=== PATIENT | male | born 1960 | race Caucasian/White ===

== ENCOUNTER → 2019-11-21 | Day surgery (SDC) | payer OTHER ==
[~2019-11-21] MED LIST: CARVEDILOL25 MG PO; FENOFIBRATE145 M1 PO; FENOFIBRATE160 MG PO; NORCO 5-325 TA1 EAC1 PO; ULTRAM 50MG TAB50 MG PO
[2019-11-21 07:40] LABS: HEMATOCRIT 45.6 % (42.0-52.0); HEMOGLOBIN 15.8 gm/dL (14.0-18.0); MCH 30.4 pg (26.0-34.0); MCHC 34.6 g/dL (28.0-37.0); MCV 87.7 fL (80.0-100.0); MPV 11.3 fl. (7.2-11.1); RBC 5.2 mil/uL (4.50-6.00); RDW-CV 13.2 % (10.5-14.5); WBC 7.7 thou/uL (4.0-11.0)
[2019-11-21 07:43] LABS: CALCIUM 8.6 mg/dL (8.5-10.1); CREATININE 0.9 mg/dL (0.6-1.3); POTASSIUM 4.1 mmol/L (3.5-5.1)
--- NOTE | 2019-11-21 08:59 | EKG ---
[place] [address] ELECTROCARDIOGRAM REPORT Name: MARIA EUGENIATANJA Rangel Room: [facility]#: [id number] Admission: 11/21/19 Attend Phys: Eric Miller Discharge: Date of : 64 Date of Service: 11/21/19 0756 Report #: [id number] THIS REPORT FOR: //name// [facility] Test Date: 2019-11-21 Test Time: 07:56:33 Pat Name: TANJA DEL CID Department: Room: Gender: Surg Tech: : 1960 Requested By: Eric Shelton Order Number: [id number] MD: Cabrera Doe Measurements Intervals [place] Rate: 57 P: 22 CT: 170 QRS: 42 QRSD: 134 T: 16 QT: 455 QTc: 443 Interpretive Statements Sinus rhythm Right bundle branch block No previous ECG available for comparison Electronically Signed On 11-21-2019 8:57:33 CDT by Cabrera Doe [email or web address] <ELECTRONICALLY SIGNED> By: Cabrera Doe MD, [facility] 11/21/19 0857 0756 0756 Cabrera Doe MD, FACC /EPI
--- NOTE | 2019-11-23 11:09 | PATH ---
[facility] [address] [place] [address] PATHOLOGY RPT PROCEDURE Name: TANJA DEL CID Room: [facility].#: [id number] Admission: 11/21/19 Date of : 64 Discharge: Report #: [id number] Path Case #: [id number] [facility] Accession Number: [id number] . 01 Material submitted: . groin - RIGHT GROIN LIPOMA. Modifiers: right . 01 Clinical history: . Lipoma, groin . 02 Diagnosis: Right groin lipoma: - Lipoma. (DONAVAN/db; 11/22/2019) LBQ 11/22/2019 1825 Local . 02 Electronically signed: . Fortunato Petty MD, Pathologist NPI- [id number] . 01 Gross description: . The specimen is received in formalin, labeled "[place] Saad, right groin lipoma". Received is a segment of yellow-cedeño lobulated tissue measuring 6.3 x 4.1 x 2.2 cm in greatest dimensions. Sectioning reveals bright yellow cut surfaces with no grossly distinct nodules or lesions. The specimen is submitted representatively in cassette A1. (CAA; 11/21/2019) QAC/QAC 11/21/2019 1707 Local . 02 Pathologist provided ICD-10: D17.79 . 02 CPT . 682229 Specimen Comment: A courtesy copy of this report has been sent to [phone] Specimen Comment: [phone] Specimen Comment: Report sent to / DR PALMER Performed at: [address], [place], [place] [id number] MD Sam Dobbins MD Phone: [phone] Performed at: 02 [facility] [address], [place], [place] [id number] MD Fortunato Petty MD Phone: [phone]
--- NOTE | 2019-12-02 13:17 | OP ---
[facility] [address] [place] [address] OPERATIVE REPORT Name: TANJA DEL CID Room: [facility]#: [id number] Admission: 11/21/19 Attend Phys: Eric Shelton Discharge: Date of : 64 Report #: [id number] THIS REPORT FOR: //name// cc: Aliya Camarena MD, Ghazal A. MD ~ THIS REPORT FOR: //name// CC: Aliya Shelton DATE OF SERVICE: 11/21/2019 PREOPERATIVE DIAGNOSIS: Right groin lipoma, 3 cm. POSTOPERATIVE DIAGNOSIS: Right groin lipoma, 3 cm. OPERATION: Excision of right groin lipoma, 3 cm. SURGEON: Eric Shelton MD ANESTHESIA: General. ESTIMATED BLOOD LOSS: Minimal. SPECIMEN: Lipoma. DESCRIPTION OF PROCEDURE: After informed consent was obtained, the patient was brought to the operating room and placed supine. SCDs were placed and working, preoperative antibiotics were administered, general anesthesia was induced. The right groin was prepped and draped in the usual sterile fashion. An approximately 3 cm incision was made over the right groin over the palpable lipoma. Cautery dissection was made down through the subcutaneous tissue. Lipoma was dissected around and excised. The skin was then reapproximated with 4-0 Monocryl in running subcuticular fashion. Incision was dressed with Steri-Strips, and gauze. COMPLICATIONS: None. DISPOSITION: The patient was taken to recovery in satisfactory condition. <ELECTRONICALLY SIGNED> By: Eric Shelton MD 12/02/19 1317 0916 [id number] Shelton MD /nt
== END | disposition home or self-care (01) ==
LOC: M.SUR 06:53
PROVIDERS: ATTEND Surgery
DX: D17.20 Benign lipomatous neoplasm of skin and subcutaneous tissue of unspecified limb (principal); Z79.899 Other long term (current) drug therapy; Z98.890 Other specified postprocedural states